=== PATIENT | female | born 1950 | race Caucasian/White ===

== ENCOUNTER 2025-03-28 11:34 | Outpatient (AMB) | payer MEDICARE, SELFPAY ==
--- NOTE | 2025-03-28 12:15 | A.OFFVIS_ITS ---
Intake Visit Reasons: 1 m Allergies codeine Allergy (Verified 03/27/25 16:11) Unknown erythromycin base Allergy (Verified 03/27/25 16:11) Unknown oxycodone Allergy (Verified 03/27/25 16:11) Unknown Medication List - Last Reconciled 03/28/25 by Sima Aguirre MD aspirin 81 mg PO DAILY atorvastatin 10 mg PO DAILY cholecalciferol (vitamin D3) 50 mcg PO DAILY empagliflozin (Jardiance) 25 mg PO DAILY gabapentin mg PO gemfibrozil 600 mg PO glimepiride 1 mg PO DAILY levothyroxine 112 mcg PO DAILY losartan 100 mg PO DAILY magnesium oxide 400 mg PO DAILY meloxicam 15 mg PO DAILY montelukast 10 mg PO DAILY omeprazole 20 mg PO BID oxybutynin chloride ER 15 mg PO DAILY HPI Comments Details: The patient is a 74-year-old female presenting with pain in the left upper inner thigh. The discomfort has persisted without significant change and is described as tender when touched. This pain becomes evident particularly when lying down or sometimes while seated but can be mitigated by altering leg positions. The location is specific to the left side. While initiating gabapentin therapy at 300 mg, she experienced adverse effects, leading to a successful reduction to 200 mg. This medication has significantly ameliorated symptoms of carpal tunnel syndrome in her hands yet shows no effect on her thigh pain. Her Sx started six-month earlier with tenderness and sensitivity in the upper medial thigh on the left side adjacent to the groin.? It's most noticeable when she is sitting or lying down.? It's only felt when she touches it or presses on it . There is no severe pain.? It so not increased or more noticeable while walking. The intensity varies.? Her medical history includes a tendency for excessive scar tissue formation. 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 She's also had multiple hernia surgeries.? She has a history of type 2 diabetes for more than 15 years.? Last A1c was 6.4. [facility] Medical History (Updated 03/28/25 @ 12:26 by Sima Aguirre MD) Hypothyroidism Diabetes mellitus Osteoarthritis Neuropathy Review of Systems Const Details: ?Sleep:? Difficulty getting to sleepdenies.? Difficulty maintaining sleepdenies?.? Urge to move legsdenies.? Teeth grindingdenies.? Shouting or Kicking during sleep denies.? Abnormal behavior during sleepdenies.? Excessive sleepdenies.? Snoring denies.? Daytime sleepinessdenies. ???General/Constitutional:? Change in appetitedenies.? Chillsdenies.? Fatiguedenies.? Feverdenies.? Weight gaindenies.? Weight lossdenies. ???Ophthalmologic:? Blurred visiondenies.? Diminished visual acuitydenies. ???ENT:? Stuffinessadmits.? Decreased hearingdenies.? Dry mouthdenies.? Ear paindenies.? Nosebleeddenies.? Ringing in the earsdenies.? Sinus paindenies.? Sore throat denies.? Swollen glandsdenies. ???Endocrine:? Cold intolerancedenies.? Excessive thirstdenies.? Frequent urinationdenies.? Heat intolerancedenies. ???Respiratory:? Shortness of breathadmits.? Chest paindenies.? Coughadmits. ???Breast:? Breast lumpdenies.? Nipple dischargedenies. ???Cardiovascular:? Chest pain at restdenies.? Chest pain with exertiondenies.? Claudicationdenies .? Dizzinessdenies.? Fluid accumulation in the legsdenies.? Irregular heartbeat denies.? Palpitationsdenies. ???Gastrointestinal:? Abdominal paindenies.? Constipationadmits.? Diarrheaadmits.? Difficulty swallowingdenies.? Heartburndenies.? Nauseaadmits.? Rectal bleedingdenies. ???Hematology:? Easy bruisingdenies.? Prolonged bleedingdenies. ???Genitourinary:? Frequent urinationadmits.? Urgencydenies.? Incontinencedenies.? Erectile Dysfunctiondenies. ???Musculoskeletal:? Neck painadmits.? Back painadmits.? Muscle achesadmits.? Painful jointsadmits.? Sciaticadenies.? Weaknessdenies. ???Podiatric:? Difficulty walkingdenies.? Foot numbnessdenies. ???Neurologic:? Difficulty swallowingdenies.? Balance difficultyadmits.? Coordinationnormal.? Difficulty speakingdenies.? Dizzinessdenies.? Faintingdenies.? Gait abnormality denies.? Headachedenies.? Loss of strengthdenies.? Loss of use of extremity denies.? Low back paindenies.? Memory lossdenies.? Seizuresdenies.? Ticsdenies.? Tingling/Numbnessfeet.? Transient loss of visiondenies.? Tremordenies. ???Psychiatric:? Anxietydenies.? Auditory/visual hallucinationsdenies.? Delusionsdenies.? Depressed mooddenies.? Stressorsdenies.? Substance abusedenies.? Suicidal thoughtsdenies. Physical Exam Neuro Other: Abnormal neurological findings:??soft tissue tenderness in the left upper inner thigh. No weakness or sensory loss. Areflexia of LE.?Mental Status:??alert and oriented X 3,?Normal attention, orientation, memory and affect.?Cranial Nerves:??Pupils are equal, round and reactive to light. Fundoscopy shows normal disc bilaterally. External occular muscles are intact. Visual osei are full, no ptosis. Face is symmetrical, no facial weakness or droop. Facial sensations are normal. Tongue protrudes in midline. Palate elevates symmetrically. Shoulder shrugging is normal..?Motor Examination:??Normal muscle tone, bulk and strength,?No atrophy or fasciculations,?No drift of the extended upper extremities,?Deep tendon reflexes are absent in LE?,?Plantars are flexor?.?Motor Strength:?Proximal Muscles (out of 5):5Distal Muscles (out of 5):5Neck Flexors (out of 5):5Neck Extensors (out of 5):5Deltoid (out of 5):5Biceps (out of 5):5 Triceps (out of 5):5Serratus Anterior (out of 5):5Wrist Extensors (out of 5):5 APB (out of 5):5Finger Spread (out of 5):5Ileopsoas (out of 5):5Quadriceps (out of 5):5Hamstrings (out of 5):5Tibialis Anterior (out of 5):5Peronei (out of 5):5 EDB (out of 5):5Gastrocnemius (out of 5):5Straight Leg Raising:??90 degrees.?Sensory Exam:??Normal light touch, temperature, pinprick, vibration and joint-position sensations?,?Rhomberg sign is absent.?Coordination:??no ataxia,?no titubation,?metjrj-kw-agsj, guew-kzfh-wyww test and rapid alternating movements were normal.?Gait Exam:??Within normal limits.?Cerebellar Signs:??Hkyzce-ye-rdns and qanb-so-ppke is normal,?no dysdiadochokinesia?.?Extrapyramidal System:??No tremor, rigidity with normal facial expressions,?No bradykinesia, no bradyphrenia. Normal arm swing and posture. No propulsion or retropulsion.?Speech:??Normal,?no dysphasia or dysarthria..? Mini Mental Status Exam: Level of Consciousness:??Alert.?Orientation:??Knows correct year, month, date, day and season,?Knows correct city, county and state. Knows correct location and floor.?Registration:??Able to register 3 objects.?Attention:??Serial 7's performed accurately.?Recall:??Able to recall 3 out of 3 objects.?Language:??Normal spontaneous speech, fluency, repetition,naming, comprehension, reading and writing.?Total Score:??30/30.? General Examination: GENERAL APPEARANCE:??normal,?in no acute distress.?HEAD:??normocephalic,?atraumatic.?EYES:??sclera non- icteric,?conjunctiva clear.?EARS:??auditory canal clear,?tympanic membrane intact, clear.?NOSE:??no lesions.?ORAL CAVITY:??gums normal,?mucosa moist,?no lesions.?THROAT:??clear.?NECK/THYROID:??no cervical lymphadenopathy,?thyroid normal,?neck supple, full range of motion,?no carotid bruit.?SKIN:??no rashes,?no significant birthmarks.?HEART:??S1, S2 normal,?no murmurs.?LUNGS:??clear anteriorly and posteriorly.?CHEST:??no gross rib deformity,?clear to auscultation.?BACK:??normal exam of spine.?EXTREMITIES:??no edema.?PERIPHERAL PULSES:??normal.?PSYCH:??alert, oriented,?cognitive function intact,?cooperative with exam.? Assessment & Plan Assessment & Plan (1) Musculoskeletal pain of left thigh: Code(s): M79.652 - Pain in left thigh Category: Medical Plan Use Topical Diclofenac gel twice a day. Increase Gabapentin to 300mg hs gradually as tolerated. Medications: New diclofenac sodium 1% apply to single knee, ankle, foot; for foot includes sole/toes/top of foot 4 grams topical BID 100 grams 0RF 15 days Coding Level of Care Code Est Pt Level 3 (16022) Diagnoses Musculoskeletal pain of left thigh M79.652
== END 2025-03-28 12:35 | disposition home or self-care (01) ==
LOC: HO.HSM 11:35
PROVIDERS: PCP Internal Medicine; Visit Provider Psychiatry & Neurology Neurology
DX: M79.652 Pain in left thigh (principal)
CPT/HCPCS: 99213

== ENCOUNTER → 2025-03-28 11:34 | Outpatient (BNVA) | payer MEDICARE, SELFPAY | PROVIDERS: PCP Internal Medicine; Visit Provider Psychiatry & Neurology Neurology | DX: M79.652 Pain in left thigh (principal) | CPT/HCPCS: 99212 ==

== ENCOUNTER 2025-06-27 11:31 | Outpatient (AMB) | payer MEDICARE, SELFPAY ==
--- NOTE | 2025-06-27 11:57 | A.OFFVIS_ITS ---
Intake Visit Reasons: Inner thigh pain Allergies codeine Allergy (Verified 03/27/25 16:11) Unknown erythromycin base Allergy (Verified 03/27/25 16:11) Unknown oxycodone Allergy (Verified 03/27/25 16:11) Unknown Medication List - Last Reconciled 06/27/25 by Sima Aguirre MD aspirin 81 mg PO DAILY atorvastatin 10 mg PO DAILY cholecalciferol (vitamin D3) 50 mcg PO DAILY diclofenac sodium 1% 4 grams topical BID 15 days empagliflozin (Jardiance) 25 mg PO DAILY gabapentin 300 mg PO BEDTIME 30 days gemfibrozil 600 mg PO glimepiride 1 mg PO DAILY levothyroxine 112 mcg PO DAILY losartan 100 mg PO DAILY magnesium oxide 400 mg PO DAILY meloxicam 15 mg PO DAILY montelukast 10 mg PO DAILY omeprazole 20 mg PO BID oxybutynin chloride ER 15 mg PO DAILY HPI Comments Details: The patient is a 74-year-old female presenting with pain in the left upper inner thigh over an area of 6 inches. It is random and does not always hurt. Rubbing and changing positions help. The discomfort has persisted without significant change and is described as tender when touched. This pain becomes evident particularly when lying down or sometimes while seated but can be mitigated by altering leg positions. The location is specific to the left side. While initiating gabapentin therapy at 300 mg, she experienced adverse effects, leading to a successful reduction to 200 mg. This medication has significantly ameliorated symptoms of carpal tunnel syndrome in her hands yet shows no effect on her thigh pain. Her Sx started six-month earlier with tenderness and sensitivity in the upper medial thigh on the left side adjacent to the groin.? It's most noticeable when she is sitting or lying down.? It's only felt when she touches it or presses on it . There is no severe pain.? It so not increased or more noticeable while walking. The intensity varies.?At worst it is 6/10. It is helped by ice and sometimes by rubbing and massage Her medical history includes a tendency for excessive scar tissue formation. 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 She's also had multiple hernia surgeries.? She has a history of type 2 diabetes for more than 15 years.? Last A1c was 6.4. [facility] Medical History (Updated 06/27/25 @ 11:59 by Sima Aguirre MD) Hypothyroidism Diabetes mellitus Osteoarthritis Neuropathy Review of Systems Const Details: ?Sleep:? Difficulty getting to sleepdenies.? Difficulty maintaining sleepdenies?.? Urge to move legsdenies.? Teeth grindingdenies.? Shouting or Kicking during sleep denies.? Abnormal behavior during sleepdenies.? Excessive sleepdenies.? Snoringd enies.? Daytime sleepinessdenies. ???General/Constitutional:? Change in appetitedenies.? Chillsdenies.? Fatiguedenies.? Feverdenies.? Weight gaindenies.? Weight lossdenies. ???Ophthalmologic:? Blurred visiondenies.? Diminished visual acuitydenies. ???ENT:? Stuffinessadmits.? Decreased hearingdenies.? Dry mouthdenies.? Ear paindenies.? Nosebleeddenies.? Ringing in the earsdenies.? Sinus paindenies.? Sore throat denies.? Swollen glandsdenies. ???Endocrine:? Cold intolerancedenies.? Excessive thirstdenies.? Frequent urinationdenies.? Heat intolerancedenies. ???Respiratory:? Shortness of breathadmits.? Chest paindenies.? Coughadmits. ???Breast:? Breast lumpdenies.? Nipple dischargedenies. ???Cardiovascular:? Chest pain at restdenies.? Chest pain with exertiondenies.? Claudicationdenies .? Dizzinessdenies.? Fluid accumulation in the legsdenies.? Irregular heartbeat denies.? Palpitationsdenies. ???Gastrointestinal:? Abdominal paindenies.? Constipationadmits.? Diarrheaadmits.? Difficulty swallowingdenies.? Heartburndenies.? Nauseaadmits.? Rectal bleedingdenies. ???Hematology:? Easy bruisingdenies.? Prolonged bleedingdenies. ???Genitourinary:? Frequent urinationadmits.? Urgencydenies.? Incontinencedenies.? Erectile Dysfunctiondenies. ???Musculoskeletal:? Neck painadmits.? Back painadmits.? Muscle achesadmits.? Painful jointsadmits.? Sciaticadenies.? Weaknessdenies. ???Podiatric:? Difficulty walkingdenies.? Foot numbnessdenies. ???Neurologic:? Difficulty swallowingdenies.? Balance difficultyadmits.? Coordinationnormal.? Difficulty speakingdenies.? Dizzinessdenies.? Faintingdenies.? Gait abnormality denies.? Headachedenies.? Loss of strengthdenies.? Loss of use of extremity denies.? Low back paindenies.? Memory lossdenies.? Seizuresdenies.? Ticsdenies.? Tingling/Numbnessfeet.? Transient loss of visiondenies.? Tremordenies. ???Psychiatric:? Anxietydenies.? Auditory/visual hallucinationsdenies.? Delusionsdenies.? Depressed mooddenies.? Stressorsdenies.? Substance abusedenies.? Suicidal thoughtsdenies. Physical Exam Neuro Other: Abnormal neurological findings:??soft tissue tenderness in the left upper inner thigh. No weakness or sensory loss. Areflexia of LE.?Mental Status:??alert and oriented X 3,?Normal attention, orientation, memory and affect.?Cranial Nerves:??Pupils are equal, round and reactive to light. Fundoscopy shows normal disc bilaterally. External occular muscles are intact. Visual osei are full, no ptosis. Face is symmetrical, no facial weakness or droop. Facial sensations are normal. Tongue protrudes in midline. Palate elevates symmetrically. Shoulder shrugging is normal..?Motor Examination:??Normal muscle tone, bulk and strength,?No atrophy or fasciculations,?No drift of the extended upper extremities,?Deep tendon reflexes are absent in LE?,?Plantars are flexor?.?Motor Strength:?Proximal Muscles (out of 5):5Distal Muscles (out of 5):5Neck Flexors (out of 5):5Neck Extensors (out of 5):5Deltoid (out of 5):5Biceps (out of 5):5 Triceps (out of 5):5Serratus Anterior (out of 5):5Wrist Extensors (out of 5):5 APB (out of 5):5Finger Spread (out of 5):5Ileopsoas (out of 5):5Quadriceps (out of 5):5Hamstrings (out of 5):5Tibialis Anterior (out of 5):5Peronei (out of 5):5 EDB (out of 5):5Gastrocnemius (out of 5):5Straight Leg Raising:??90 degrees.?Sensory Exam:??Normal light touch, temperature, pinprick, vibration and joint-position sensations?,?Rhomberg sign is absent.?Coordination:??no ataxia,?no titubation,?ffscuj-op-jntb, phgz-qsce-dqwm test and rapid alternating movements were normal.?Gait Exam:??Within normal limits.?Cerebellar Signs:??Ewbimw-yc-ojhq and ucet-zn-kymb is normal,?no dysdiadochokinesia?.?Extrapyramidal System:??No tremor, rigidity with normal facial expressions,?No bradykinesia, no bradyphrenia. Normal arm swing and posture. No propulsion or retropulsion.?Speech:??Normal,?no dysphasia or dysarthria..? Mini Mental Status Exam: Level of Consciousness:??Alert.?Orientation:??Knows correct year, month, date, day and season,?Knows correct city, county and state. Knows correct location and floor.?Registration:??Able to register 3 objects.?Attention:??Serial 7's performed accurately.?Recall:??Able to recall 3 out of 3 objects.?Language:??Normal spontaneous speech, fluency, repetition,naming, comprehension, reading and writing.?Total Score:??30/30.? General Examination: GENERAL APPEARANCE:??normal,?in no acute distress.?HEAD:??normocephalic,?atraumatic.?EYES:??sclera non-icteric,?conjun ctiva clear.?EARS:??auditory canal clear,?tympanic membrane intact, clear.?NOSE:??no lesions.?ORAL CAVITY:??gums normal,?mucosa moist,?no lesions.?THROAT:??clear.?NECK/THYROID:??no cervical lymphadenopathy,?thyroid normal,?neck supple, full range of motion,?no carotid bruit.?SKIN:??no rashes,?no significant birthmarks.?HEART:??S1, S2 normal,?no murmurs.?LUNGS:??clear anteriorly and posteriorly.?CHEST:??no gross rib deformity,?clear to auscultation.?BACK:??normal exam of spine.?EXTREMITIES:??no edema.?PERIPHERAL PULSES:??normal.?PSYCH:??alert, oriented,?cognitive function intact,?cooperative with exam.? Assessment & Plan Assessment & Plan (1) Musculoskeletal pain of left thigh: Code(s): M79.652 - Pain in left thigh Category: Medical (2) Neuropathy: Code(s): G62.9 - Polyneuropathy, unspecified Category: Medical Plan Use Topical Diclofenac gel twice a day. Increase Gabapentin to 300mg hs gradually as tolerated. Coding Level of Care Code Est Pt Level 4 (85931) Diagnoses Musculoskeletal pain of left thigh M79.652 Neuropathy G62.9
--- OUTSIDE RECORDS SUMMARY | 2025-06-27 14:36 | XMS_ITS | Encounter Summary ---
Author Organization [facility] Address [address] [place] [id number] Phone Care Team Providers Care Foreign Languages Department Chair Name Role Phone Austen Murry MD Primary Care Provider [phone] Encounter Details Date Type Department Care Team (Late st Contact Info) Description 08/17/2024 Procedure Pass [facility], Ct Scan - [address] [address] Social History Tobacco Use Types Packs/Day Years Used Date Smoking Tobacco: Unknown Alcohol Use Standard Drinks/Week Comments Not Currently 0 (1 standard drink = 0.6 oz pur e alcohol) Education Answer Date Recorded Are you interested in more education? Not on claire e 12/09/2023 Are you concerned about learning? Not on file 12/09/2023 No 12/09/2023 No 12/09/2023 Digital Access Answer Date Recorded No 12/09/2023 No 12/09/2023 Reliable internet access at home? Not on file 12/09/2023 Device with a working camera? Not on file Intimate Partner Violence Answer Date R ecorded Are you denied basic needs s uch as food, clothing, or medical care? No 08/17/2024 In the past 12 months have y ou been in a relationship with a person who hurts, threatens, or tries to control you? No 08/17/2024 Are you denied basic needs s uch as food, clothing, or medical care? No 08/17/2024 In the past 12 months have y ou been in a relationship with a person who hurts, threatens, or tries to control you? No 08/17/2024 Comments Unknown Sex and Gender Information Value Date Recorded Sex Assigned at Female 08/17/2024 3:04 AM EST Legal Sex Female 9:59 PM EDT Gender Identity Female 08/17/2024 3:04 AM EST Sexual Orientation Straight 08/17/2024 3: 04 AM EST documented as of this encounter Functional Status * Calculated C-SSRS Risk Score (Lifetime/Recent) Answer Date of Assessment Author No Risk Indicated 08/17/2024 2:39 AM Chhaya Bates RN * [place] Suicide Severity Rating Scale (Screener/Recent Self-Report) Question Answer Date of Assessment Author 1. Wish to be (Past 1 Month) No 08/17/2024 2:39 AM Nelda Menjivar RN 2. Non-Specific Active Suicidal Thoughts (Past 1 Month) No 08/17/2024 2:39 AM Nelda Menjivar RN 6. Suicidal Behavior (Lifetime) No 08/17/2024 2:39 AM Nelda Menjivar RN documented as of this encounter Plan of Treatment Not on file documented as of this encounter Visit Diagnoses Not on filedocumented in this encounter Care Teams Foreign Languages Department Chair Relationship Specialty Start Date End Date Austen Murry MD [address] [place] [address] [place] [address] PCP - General Internal Medicine 12/09/23 documented as of this encounter Additional Source Comments The information contained in this document represents components of the legal health record. It is not the complete legal health record.[facility]
--- OUTSIDE RECORDS SUMMARY | 2025-06-27 14:36 | XMS_ITS | Clinical Summary ---
Author Organization [facility] Address [address] [place] [id number] Phone Care Team Providers Care Briquetting Machine Operator Name Role Phone Austen Murry MD Primary Care Provider [phone] Allergies Active Allergy Reactions Criticality Noted Date Comments Erythromycin Diarrhea,Headaches,N ausea Only,Anaphylaxis High 06/23/2015 Erythromycin Base Headaches,Nausea Only 08/17/2024 Level of certainty: Very Certain Liraglutide Nausea Only 12/09/2023 Metformin Nausea Only 12/09/2023 Shellfish Containing Products Headaches,Nausea Only 08/17/2024 Medications levothyroxine (SYNTHROID, LEVOTHROID) 112 MCG tablet Take by mouth. Active oxyBUTYnin (DITROPAN XL) 15 MG 24 hr tablet Take by mouth. Activ e cholecalcifero l (VITAMIN D3) 2,000 unit capsule Take by mouth. Activ e gemfibroziL (LOPID) 600 MG tablet Take by mouth. Activ e losartan (COZAAR) 100 MG tablet Take by mouth. Activ e omeprazole (PRILOSEC) 20 MG capsuleIndicat ions:gastroeso phageal reflux disease Take 20 mg by mouth 2 (two) times a day. Indications: gastroesophageal reflux disease Active glimepiride (AMARYL) 1 MG tablet Take by mouth. Activ e JANUVIA 100 mg tablet Take by mouth. Activ e JARDIANCE 25 mg tablet 10/02/19 Active montelukast (SINGULAIR) 10 mg tablet Take by mouth. Activ e aspirin 81 MG EC tablet Take 1 tablet (81 mg total) by mouth daily. 08/22/20 24 Active magnesium hydroxide (MOM) 400 mg/5 mL Susp Take 30 mL (2,400 mg total) by mouth nightly at bedtime as needed (take 2-3 times per week). 08/21/20 24 Active Active Problems Problem Noted Date Diagnosed Date Small bowel obstruction 08/17/2024 Assessment & Plan (08/20/2024 9:58 AM EST): -Recurrent, seen on CT, symptoms improving, passing flatus, small BM 08/19 but nothing since -Hx of several abd surgeries, high likelihood of adhesions. - no vomiting, but if so would place NGT - trial clears - ambulate in halls - repleting K Assessment & Plan (08/19/2024 12:11 PM EST): -Recurrent, seen on CT, symptoms improving, passing flatus, small BM 08/18 but nothing since -Hx of several abd surgeries, high likelihood of adhesions. Appreciate surgery following, conservative approach for now - no vomiting, but if so would place NGT - advanced to sips but was taking large volume clears overnight. Ct clears. Advance diet as tolerated. Assessment & Plan (08/18/2024 10:37 AM EST): Recurrent, seen on CT, symptoms improving, passing flatus, no BM yet. Hx of several abd surgeries, high likelihood of adhesions. Appreciate surgery following, conservative approach for now, NPO - place NGT if vomiting - IVF while NPO, POCC/ISS Assessment & Plan (08/17/2024 10:40 AM EST): Recurrent problem. CT abd/pelvis on admission with transition point in the left hemiabdomen, no pneumatosis or pneumoperitoneum; also notes subcutaneous fluid collection over the left greater trochanter (correlates with hematoma on exam, recent fall). Hx of several abd surgeries, high likelihood of adhesions. - NPO - place NGT if vomiting - IVF: D5 1/2NS as patient is a diabetic with q6hr POC glucose and corresponding MESSI. - nausea control: zofran IV prn has been effective in the ED, EKG ordered to monitor qtc - pain control: morphine IV prn - General surgery is consulted. 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 Vitamin D deficiency 08/17/2024 Hematoma 08/17/2024 Assessment & Plan (08/20/2024 9:58 AM EST): Fall 2 wk PRODUCTION ANALYST on Lhip seen on admission, no current issues, improving pain. Assessment & Plan (08/19/2024 12:11 PM EST): Fall 2 wk PRODUCTION ANALYST on Lhip seen on admission, no current issues, improving pain. Assessment & Plan (08/18/2024 10:37 AM EST): Fall 2 wk PRODUCTION ANALYST on Lhip seen on admission, no current issues, improving pain. Assessment & Plan (08/17/2024 10:40 AM EST): Fall on left hip about 2 weeks prior to presentation resulting in hematoma as seen on CT and correlated on exam. Patient reports she was looking ahead and didn't notice a cord on the ground which she tripped over. improving symptoms. Hypertriglyceridemia 11/05/2022 Chronic lymphocytic leukemia 11/03/2022 Assessment & Plan (08/20/2024 9:58 AM EST): Reports stable; counts are normal Followed by Dr Mitchell at [facility] Assessment & Plan (08/19/2024 12:11 PM EST): Reports stable Followed by Dr Mitchell at [facility] Assessment & Plan (08/18/2024 10:37 AM EST): Reports stable Followed by Dr Mitchell at [facility] Assessment & Plan (08/17/2024 1:15 PM EST): Patient reports hx of SLL, now CLL which has been stable. Followed by Dr Mitchell at [facility], says she gets labs checked about every 6 months. Asthma 04/07/2022 Diabetic peripheral neuropathy 04/07/2022 Essential hypertension 04/07/2022 Assessment & Plan (08/20/2024 9:58 AM EST): Losartan resumed Assessment & Plan (08/19/2024 12:11 PM EST): Losartan resumed , no longer NPO and pressures are high now Assessment & Plan (08/18/2024 10:37 AM EST): hold losartan, as unable to take PO and normotensive Assessment & Plan (08/17/2024 1:15 PM EST): Home regimen: losartan 100mg daily - hold for now, as unable to take PO and normotensive Gastroesophageal reflux disease 04/07/2022 Assessment & Plan (08/20/2024 9:58 AM EST): Cont home daily PPI Assessment & Plan (08/19/2024 12:11 PM EST): On chronic daily PPI Assessment & Plan (08/18/2024 10:37 AM EST): On chronic daily PPI, IV while npo Assessment & Plan (08/17/2024 1:15 PM EST): And associated hoarseness. On chronic daily PPI. Will convert to pantoprazole 40mg IV daily while here. Hypothyroidism 04/07/2022 Assessment & Plan (08/20/2024 9:58 AM EST): Last tsh stable, follows with endo, resumed levothyroxine. Assessment & Plan (08/19/2024 12:11 PM EST): Last tsh stable, follows with endo, resumed levothyroxine. Assessment & Plan (08/18/2024 10:37 AM EST): Last tsh stable, follows with endo, holding home levothyroxine. Assessment & Plan (08/17/2024 1:15 PM EST): Followed by endocrine, Marisel Armstrong. Home regimen: levothyroxine 112mcg daily TSH 1.4 on 03/03/24, stable for at least 1 year per my review of records. - if not able to take PO by tomorrow, consider IV formulation - check TSH, free T 4 Obsessive-compulsive disorder 04/07/2022 Osteoarthritis 04/07/2022 Type 2 diabetes mellitus 04/07/2022 Assessment & Plan (08/20/2024 9:58 AM EST): Well controlled per A1c of 6.3 Home medications include: Glimepiride, januvia. Jardiance. Holding orals, POC/ISS. Followed by endocrineDr [facility]. Assessment & Plan (08/19/2024 12:11 PM EST): Well controlled per A1c of 6.3 Home medications include: Glimepiride, januvia. Jardiance. Holding orals, POCC.ISS. Followed by endocrineDr [facility]. Assessment & Plan (08/18/2024 10:37 AM EST): Well controlled per A1c OF 6.3 Home medications include: Glimepiride, januvia. Jardiance. Followed by endocrineDr [facility]. Assessment & Plan (08/17/2024 1:15 PM EST): HEMOGLOBIN A1C Date Value Ref Range Status 08/17/2024 6.3 (H) 4.3 - 5.8 % Final A1c 6.4 07/06/24 Home medications include: gemfibrozil, glimepiride, januvia. Jardiance. Followed by endocrine, Dr Rios, [facility]. 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 [place] to be due to frequent intubations for abdominal surgery. Has received multiple debridements and dilation from thoracic surgery, also seen by complex airway center at [facility]. Assessment & Plan (08/17/2024 1:15 PM EST): Webbing in the proximal trachea with stenosis diagnosed via bronchoscopy 06/2018. [place] to be due to frequent intubations for abdominal surgery. Has received multiple debridements and dilation from thoracic surgery, also seen by complex airway center at [facility]. Resolved Problems Problem Noted Date Diagnosed Date Resolved Date Diaphragmatic paresis 11/03/20222023 Assessment & Plan (08/20/2024 9:58 AM EST): Pulled from EMR Assessment & Plan (08/17/2024 1:15 PM EST): Pulled from EMR Immunizations Immunization Administration Dates Next Due Influenza High-Dose Quadrivalent Preservative Fr ee IM 07/02/2021 Influenza High-Dose Trivalent Preservative Free IM 07/13/2019,07/12/2018 Influenza Quadrivalent Adjuvanted Preservative F ree IM 05/28/2023,06/03/2022 Influenza Recombinant Mirtha valent Preservative Free IM 06/25/2020 RSV Vaccine (monovalent, adjuvanted) 07/10/2023 Social History Tobacco Use Types Packs/Day Years Used Date Smoking Tobacco: Unknown Tobacco Cessation:Counseling Given: Not Answered Alcohol Use Standard Drinks/Week Comments Not Currently [...] Orientation Straight 08/17/2024 3: 04 AM EST Last Filed Vital Signs Vital Sign Reading Time Taken Comments Blood Pressure 132/75 08/21/2024 7:25 AM EST Pulse 66 08/21/2024 7:25 AM EST Temperature 36.5 C (97.7 F) 08/21/2024 7:25 AM EST Respiratory Rate 18 08/21/2024 7:25 AM EST Oxygen Saturation 95% 08/21/2024 7:25 AM EST Inhaled Oxygen Concentration - - Weight 91 kg (200 lb 9.9 oz) 08/21/2024 6:11 AM EST Height 170.2 cm (5' 7 ) 08/20/2024 6:00 AM EST Body Mass Index 31.42 08/20/2024 6:00 AM EST Plan of Treatment Health Maintenance Due Date Last Done Comments Adult Td,Tdap Booster 1952 DEPRESSION SCREENING 1964 SMOKING Hx and SMOKELESS TOBACCO SCREENING 1965 HEPATITIS C SCREENING 1970 LIPID PANEL 1970 PNEUMOCOCCAL VACCINES (50+ years) (1 of 2 - PCV) 12/19/1971 ZOSTER VACCINES (1 of 2) 12/19/1971 MAMMOGRAM 1992 COLOGUARD 1997 COLONOSCOPY 1997 COLORECTAL CANCER SCREENING 1997 FIT TEST 1997 FOBT 1997 SIGMOIDOSCOPY 1997 VIRTUAL COLONOSCOPY 1997 OSTEOPOROSIS SCREENING INITIAL (ONE-TIME) 2017 BLOOD PRESSURE 06/10/2024 12/09/2023 DIABETIC EYE EXAM 08/17/2024 HEMOGLOBIN A1C 02/14/2025 08/17/2024 INFLUENZA VACCINE (#1) 2025 , 06/03/2022, 07/02/2021, Additional history exists COVID-19 VACCINE ( season) 2025 06/30/2023, 01/13/2023, 06/03/2022, Additional history exists TSH LEVEL 08/17/2025 08/17/2024 CREATININE LEVEL 08/20/2025 08/20/2024, , 08/18/2024, Additional history exists POTASSIUM LEVEL 08/20/2025 08/20/2024, 07/23, 08/18/2024, Additional history exists RSV VACCINE Completed 07/10/2023 HEPATITIS A VACCINES Aged Out No long er eligible based on patient's age to complete this topic HIB VACCINES Aged Out No longer eligi ble based on patient's age to complete this topic MENINGOCOCCAL VACCINES (ACWY) Aged Out No longer eligible based on patient's age to complete this topic MENINGOCOCCAL VACCINES (B) Aged Out N o longer eligible based on patient's age to complete this topic Medical Devices Not on file Procedures Procedure Name Priority Date/Time Associated Diagnosis Comments BASIC METABOLIC PANEL Routine 08/20/2024 6:17 AM EST HEMOGLOBIN A1C Routine 08/17/2024 3:43 AM EST TSH Routine 08/17/2024 3:43 AM EST from Last 3 Months or Most Recently Relevant to Health Maintenance Results * (ABNORMAL) Basic metabolic panel (08/20/2024 6:17 AM EST) SODIUM 138 133 - 146 mmol/L [facility] CHLORIDE 103 96 - 108 mmol/L [facility] POTASSIUM 3.6 3.3 - 5.1 mmol/L [facility] CO2 20(L) 21 - 35 mmol/L [facility] BUN 14 6 - 19 mg/dL [facility] CREATININE 0.70 0.5 - 1.5 mg/dL [facility] GLUCOSE 110(H) 70 - 99 mg/dL [facility] CALCIUM 9.1 8.4 - 10.3 mg/dL [facility] EGFR 92 >59 mL/min/1.7 3m2 [facility] Comment:Estimated glomerular filtration rate calculated using the CKD-EPI refit equation. ANION GAP 19 10 - 20 mmol/L [facility] Blood 08/20/2024 6:17 AM EST 08/20/2024 6:27 AM EST us Franklin Manzo DO, MPH LAB BLOOD ORDERABLES Final Result Performing Organization Address City/[facility]/ZIP Co de Phone Number [address] [phone] * TSH (08/17/2024 3:43 AM EST) Pathologist [facility] TSH 3.82 0.27 - 4.20 uIU/mL [facility] 08/17/2024 3:43 AM EST 08/17/2024 4:07 AM EST us Emiliano Merida MD LAB BLOOD ORDERABLES Final Result Performing Organization Address City/[facility]/ZIP Co de Phone Number [address] [address] * (ABNORMAL) Hemoglobin A1c (08/17/2024 3:43 AM EST) HEMOGLOBIN A1C 6.3(H) 4.3 - 5.8 % [facility] 08/17/2024 3:43 AM EST 08/17/2024 4:07 AM EST us Emiliano Merida MD LAB BLOOD ORDERABLES Final Result [facility] [address] [place] [address] from Last 3 Months or Most Recently Relevant to Health Maintenance Insurance [employer] SUPPLEMENT MEDICARE PART A & B [employer] SUPPLEMENT MEDICARE PART A & B [employer] SUPPLEMENT [employer] SUPPLEMENT [employer] MEDEX SUPPLEMENT MEDICARE PART A & B Cindy MÉNDEZ [place] [employer] MEDEX SUPPLEMENT MEDICARE PART A & B [employer] MED[employer] SUPPLEMENT MEDICARE PART A & B [place] MEDEX SUPPLEMENT MEDICARE PART A & B Advance Directives For more information, please contact: [phone] (9AM - 5PM [facility], Thursday-Thursday) Documents on File Type Date Recorded Patient Data Integration Architect Expl anation Healthcare Proxy 08/23/2024 1:00 PM * DNR OK to Intubate (Latest Code Status on File) Date Activated Date Inactivated Comments 08/18/2024 8:48 AM Question Answer Comments Code Status Confirmed With: Other (specify below ) Code Discussion Comments: admission note Care Teams Briquetting Machine Operator Relationship Specialty Start Date End Date Austen Murry MD [address] [place] [phone] PCP - General Internal Medicine 12/09/23 Additional Source Comments The information contained in this document represents components of the legal health record. It is not the complete legal health record.[facility]
--- OUTSIDE RECORDS SUMMARY | 2025-06-27 14:36 | XMS_ITS | Continuity of Care Document ---
Author Organization [facility] [address] [place] [address] Phone [phone] Care Team Providers Care Maintenance Supervisor Mechanical Name Role Phone Wally Hu Care Team Information Appliance Installer [phone] Austen Murry M.D. Care Team Information Appliance Installer [phone] Problems Active Problems Provider Date Type 2 diabetes mellitus Shagufta Rios M.D. Onset: 04/07/2022 Essential hypertension Esteban Yao Onset: 04/07/2022 Hypothyroidism Shagufta Rios M.D. Ons et: 04/07/2022 Stenosis of trachea Shagufta Rios M.D. Onset: 04/07/2022 Asthma Shagufta Rios M.D. Ons et: 04/07/2022 Osteoarthritis Shagufta Rios M.D. Ons et: 04/07/2022 Gastroesophageal reflux disease Shagufta Daugherty M.D. Onset: 04/07/2022 Obsessive-compulsive disorder Shagufta flores M.D. Onset: 04/07/2022 Diabetic peripheral neuropathy Shagufta hernandez M.D. Onset: 04/07/2022 Diaphragmatic paresis Esteban Yao Onset: 11/03/2022 Chronic lymphoid leukemia, disease Shagufta Castañeda M.D. 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 09/02/2022 Zqncelgeh19th Tablets Take 1 Tablet Daily as Directed 90tabs Shagufta Rios M.D. 04/07/2022 [id number] Tablets Take 1 Tablet Once Daily 90tabs Shagufta Rios M.D. Levothyroxine Wggfjs393xvt Tablets Take 1 Tablet By Mouth Once Daily 90tabs Shagufta Rios M.D. Aspirin Adult Low Yjgc48by Tablets 1 by mouth every day Shagufta Rios M.D. Losartan Daxfcexus342ul Tablets 1 by mouth every day Shagufta Rios M.D. Votnwoigvsd407qh Tablets take one tablet twice daily Shagufta Rios M.D. Ielmgokct06mm Tablets 1 by mouth every day 30tabs Shagufta Rios M.D. Pvjlyaawed36al Capsules DR 1 tab by mouth twice daily 90caps Shagufta Rios M.D. Oxybutynin Chloride ER15mg Tablets ER 24HR take one tablet daily Shagufta Rios M.D. Montelukast Qqnwmt37vq Tablets 1 by mouth every day Shagufta Rios M.D. Ventolin CCU107(90Base) mcg/Act Aerosol 2 puffs every 6 hours as needed Shagufta Rios M.D. Vitamin Z993ayv (1999 Ca) Capsules 1 by mouth every day Shagufta Rios M.D. Svuhxfiwgp669ay Capsules Take 1 Capsule By Mouth AT Bedtime For 2 Weeks Then 2Caps AT Bedtime Orally Once Sima Aguirre MD Atorvastatin Ktxmlua29ak Tablets Take 1 Tablet By Mouth Every Day Austen Murry M.D. Vital Signs Date Vital Result Comment 03/09/2025 2:50pm BP Systolic 100 mmHg BP Diastolic 50 mmHg Heart Rate 81 /min Height 66.5 inches 5'6.50 Weight 200.12 lb BMI (Body Mass Index) 31.8 kg/m2 Results Test Acquired Date Facility Test Result H/L Range Note Hemoglobin A1c 03/09/2025 Inhouse Hemoglobin A1c 6.2% Glucose Fingerstick 03/09/2025 Inhouse Glucose Fingerstick 159 Comp. Metabolic Panel (14) 11/10/2024 [facility] Glucose 164 mg/dL High 70-99 BUN 30 mg/dL High 8-27 Creatinine 0.97 mg/dL 0.57-1.0 0 eGFR 62 mL/min/1. 73 >59 BUN/Creatinine Ratio 31 High 12-28 Sodium 144 mmol/L 134-144 Potassium 4.5 mmol/L 3.5-5.2 Chloride 106 mmol/L 96-106 Carbon Dioxide, Total 22 mmol/L 20-29 Calcium 9.7 mg/dL 8.7-10.3 Protein, Total 6.7 g/dL 6.0-8.5 Albumin 4.5 g/dL 3.8-4.8 Globulin, Total 2.2 g/dL 1.5-4.5 Bilirubin, Total 0.4 mg/dL 0.0-1 .2 Alkaline Phosphatase 184 IU/L High 44-121 Ast (Sgot) 21 IU/L 0-40 Alt (SGPT) 17 IU/L 0-32 TSH Rfx on Abnormal to Free T4 11/10/2024 [facility] TSH Rfx on Abnormal to Free T4 1.410 uIU/mL 0.450-4. 500 Written Authorization 11/10/2024 [facility] Written Authorization See Comment: 1 Alkaline Phosphatase Isoenzymes 11/10/2024 [facility] Alkaline Phosphatase 199 IU/L High 44-121 Liver Fraction: 64 % 18-85 Bone Fraction: 34 % 14-68 Intestinal Frac.: 2 % 0-18 Glucose Fingerstick 11/10/2024 Inhouse Glucose Fingerstick 147 Hemoglobin A1c 11/10/2024 Inhouse Hemoglobin A1c 6.2% Glucose Fingerstick 07/06/2024 Inhouse Glucose Fingerstick 156 Hemoglobin A1c 07/06/2024 Inhouse Hemoglobin A1c 6.4% TSH Rfx on Abnormal to Free T4 03/03/2024 [facility] TSH Rfx on Abnormal to Free T4 1.480 uIU/mL 0.450-4. 500 Glucose Fingerstick 03/03/2024 Inhouse Glucose Fingerstick 202 Hemoglobin A1c 03/03/2024 Inhouse Hemoglobin A1c 6.8% Urinary Microalbumin 10/28/2023 [facility] Micro-Albumin <12.0 mg/L (<20) 2 Malb/Creat Ratio Unable t o calcul <SEE NOTE> MG/GM (0-20) 3 Urine Creat For Micro Albumin 54.0 mg/dL Glucose Fingerstick 10/22/2023 Inhouse Glucose Fingerstick 127 Hemoglobin A1c 10/22/2023 Inhouse Hemoglobin A1c 6.5% TSH With Reflex To FT4 06/25/2023 [facility] TSH With Reflex To FT4 1.56 uIU/mL (0.4-4.2 ) TSH With Reflex To FT4 06/20/2023 [facility] TSH With Reflex To FT4 <pending> Glucose Fingerstick 06/18/2023 Inhouse Glucose Fingerstick 138 Hemoglobin A1c 06/18/2023 Inhouse Hemoglobin A1c 6.5% Glucose Fingerstick 02/26/2023 Inhouse Glucose Fingerstick 227 Hemoglobin A1c 02/26/2023 Inhouse Hemoglobin A1c 7.0% Glucose Fingerstick 11/03/2022 Inhouse Glucose Fingerstick 213 Hemoglobin A1c 11/03/2022 Inhouse Hemoglobin A1c 6.6% Urinary Microalbumin 11/03/2022 [facility] Micro-Albumin <12.0 mg/L (<20) 4 Malb/Creat Ratio Unable t o calcul <SEE NOTE> MG/GM (0-20) 5 Urine Creat For Micro Albumin 49.7 mg/dL TSH With Reflex To FT4 11/03/2022 [facility] TSH With Reflex To FT4 1.72 uIU/mL (0.4-4.2 ) Comprehensive Metabolic Panl 11/03/2022 [facility] Glucose 185 mg/dL High (70-99) BUN 26 mg/dL High (8-23) Creatinine 0.9 mg/dL (0.5-1.0 ) Sodium 142 mmol/L (133-145 ) Potassium 4.4 mmol/L (3.6-5.2 ) Chloride 103 mmol/L (98-107) Bicarbonate 26 mmol/L (22-29) Anion Gap 13 (4-17) Albumin 4.8 GM/DL (3.4-4.8 ) Calcium 10.3 mg/dL (8.6-10. 5) Bilirubin,Total 0.4 mg/dL (0-1.2 ) Total Protein 6.9 GM/DL (6.2-8.2 ) Ag Ratio 2.3 Ast 21 U/L (0-32) Alk Phos 194 U/L High (35-104) Alt 25 U/L (0-33) Estimated GFR Creatinine 66 ML/MIN/1. 73M2 6 Glucose Fingerstick 07/07/2022 Inhouse Glucose Fingerstick 162 Hemoglobin A1c 07/07/2022 Inhouse Hemoglobin A1c 6.5% Comprehensive Metabolic Panl 04/07/2022 [facility] Glucose 198 mg/dL High (70-99) BUN 26 mg/dL High (8-23) Creatinine 1.0 mg/dL (0.5-1.0 ) Sodium 140 mmol/L (133-145 ) Potassium 4.5 mmol/L (3.6-5.2 ) Chloride 102 mmol/L (98-107) Bicarbonate 22 mmol/L (22-29) Anion Gap 16 (4-17) Albumin 4.7 GM/DL (3.4-4.8 ) Calcium 10.2 mg/dL (8.6-10. 5) Bilirubin,Total 0.4 mg/dL (0-1.2 ) Total Protein 6.7 GM/DL (6.2-8.2 ) Ag Ratio 2.4 Ast 23 U/L (0-32) Alk Phos 184 U/L High (35-104) Alt 24 U/L (0-33) Estimated GFR Creatinine 63 ML/MIN/1. 73M2 7 Complete Abc With Diff 04/07/2022 [facility] WBC 5.9 K/MM3 (4.0-11. 0) RBC 5.13 M/MM3 (4.20-5. 40) HGB 14.7 GM/DL (11.7-15 .5) HCT 45.1 % (35.7-45 .8) MCV 87.9 FL (80.0-10 0.0) MCH 28.7 pg (27.0-34 .0) MCHC 32.6 g/dL Low (33.0-37 .0) PLT 192 K/MM3 (150-460 ) RDW-SD 44.8 FL (<47.0) MPV 9.9 FL (9.4-12. 4) Automated NRBC 0.0 #/100WBC' S Abs. NRBC 0.0 K/MM3 Neut # 4.0 K/MM3 (1.3-7.0 ) Lymph # 1.4 K/MM3 (0.8-3.1 ) Dillon# 0.4 K/MM3 (0.4-0.9 ) Eo # 0.1 K/MM3 (0.0-0.4 ) Baso # 0.1 K/MM3 (0.0-0.1 ) Abs. Imm Gran 0.0 K/MM3 Neut 66.7 % (44-76) Lymph 24.2 % (15-43) Monocyte 6.1 % (4.5-10. 5) Eo 0.8 % (0-6) Baso 1.5 % (0-2) Imm Gran 0.7 % TSH With Reflex To FT4 04/07/2022 [facility] TSH With Reflex To FT4 2.22 uIU/mL (0.4-4.2 ) Glucose Fingerstick 04/07/2022 Inhouse Glucose Fingerstick 239 Hemoglobin A1c 04/07/2022 Inhouse Hemoglobin A1c 6.5 1 Written Authorizatio n Received. Authorization received from HARRY JOHNSON for Link Request on 11-14-2024 Logged by Betzaida Cameron 2 The urine microalbum in test is designed to monitor renal function. When screening for Bence Szymanski proteinuria, urine electrophoresis is recommended. 3 Unable to calculate 4 The urine microalbum in test is designed to monitor renal function. When screening for Bence Szymanski proteinuria, urine electrophoresis is recommended. 5 Unable to calculate 6 Creatinine based est imated glomerular filtration (eGFR) in adults is calculated using the [employer] recommended 2020 CKD-EPI equation. Estimates GFR from serum creatinine, age and sex. 7 Creatinine based est imated glomerular filtration (eGFR) in adults is calculated using the [employer] recommended 2020 CKD-EPI equation. Estimates GFR from serum creatinine, age and sex. Procedures Date Code Description Status 03/03/2024 09839 Collection Of Venous Blood B y Venipuncture Completed 11/03/2022 17865 Collection Of Venous Blood B y Venipuncture Completed Medical Devices Description No Information Available Encounters Type Date Location Provider Dx Diagnosis Office Visit 03/09/2025 2:30p Main Office Shagufta Rios M.D. E11.42 Type 2 diabetes mellitus with diabetic polyneuropathy E03.9 Hypothyroidism, unsp ecified E78.2 Mixed hyperlipidemia I10 Essential (primary) hypertension Assessments Date Code Description Provider 03/09/2025 E11.42 Type 2 diabetes mellitus with diabetic polyneuropathy Shagufta Rios M.D. 03/09/2025 E03.9 Hypothyroidism, unspecified Shagufta Rios M.D. 03/09/2025 E78.2 Mixed hyperlipidemia France Rios M.D. 03/09/2025 I10 Essential (primary) hyperten jose Rios M.D. Plan of Treatment Future Appointment(s):* 07/12/2025 10:15 am - Shagufta Rios M.D. at Main Office 04/07/2022 - Shagufta Rios M.D.* I10 Essential (primary) hypertension * E03.9 Hypothyroidism, unspecified * E11.40 Type 2 diabetes mellitus with diabetic neuropathy, unspecified * Functional Status Description No Information Available Mental Status Description No Information Available Referrals Description No Information Available
== END 2025-06-27 12:18 | disposition home or self-care (01) ==
LOC: HO.HSM 11:32
PROVIDERS: PCP Internal Medicine; Visit Provider Psychiatry & Neurology Neurology
DX: M79.652 Pain in left thigh (principal); G62.9 Polyneuropathy, unspecified
CPT/HCPCS: 99214

== ENCOUNTER → 2025-06-27 11:31 | Outpatient (BNVA) | payer MEDICARE, SELFPAY | PROVIDERS: PCP Internal Medicine; Visit Provider Psychiatry & Neurology Neurology | DX: M79.652 Pain in left thigh (principal); G62.9 Polyneuropathy, unspecified | CPT/HCPCS: 99212 ==